=== PATIENT | female | born 1950 | race Caucasian/White ===

== ENCOUNTER 2017-04-18 16:24 | Inpatient (IN) | payer BC, MEDICARE ==
[~2017-04-18] VITALS: Ht 157.5 cm; Wt 59.0 kg
[2017-04-18] VITALS (14 sets, daily range): BP systolic 51–114; BP diastolic 34–56
[2017-04-18] MEDS ORDERED: ZOFRAN ODT8 MG ORAL (16:36)
[2017-04-18] MEDS ORDERED: TOPROL XL25 MG ORAL (16:36)
[2017-04-18] MEDS ORDERED: VENTOLIN HFA18 GM INH (16:36)
[2017-04-18] MEDS ORDERED: METOCLOPRA10 MG/10 M ORAL (16:36)
[2017-04-18] MEDS ORDERED: XANAX0.25 MG ORAL (16:36)
[2017-04-18] MEDS ORDERED: metroNIDAZOLE 500mg 100 ML IVPB ONE (17:30)
[2017-04-18] MEDS ORDERED: CefTAZidime 1 GM in D5W 55 ML IV SCH (17:30)
[2017-04-18] MEDS ORDERED: Clindamycin 600mg 50 ML IVPB ONE (17:30)
[2017-04-18] MEDS ORDERED: Cefepime HCl 1 GM in D5W 55 ML IVPB ONE (18:30)
[2017-04-18 18:44] LABS: REFLEX LACTIC ACID YES OR NO YES
[2017-04-18] MEDS ORDERED: Hydrocortisone 100mg Inj IV ONE (18:45)
[2017-04-18] MEDS ORDERED: Lidocaine HCl 2% Jelly 5ml Tube TOPIC ONE (20:56)
[2017-04-18] MEDS ORDERED: Lidocaine 1% MPF 10mg/ml 5ml ONE ×2 (20:57→21:11)
[2017-04-18] MEDS ORDERED: Cefepime 1gm vial ONE (21:57)
[2017-04-18] MEDS ORDERED: Levophed 4mg/4mL Inj IV ONE (22:30)
[2017-04-19] VITALS (49 sets, daily range): BP systolic 70–145; BP diastolic 27–93
[2017-04-19] MEDS ORDERED: Zolpidem 5mg tab ORAL PRN ×2 (00:45→10:45)
--- NOTE | 2017-04-19 00:46 | Emergency Room Report ---
History of Present Illness General Chief Complaint: Generalized Weakness Source: Patient Present Illness HPI Patient is a 66-year-old female who presented after increased shortness of breath and hypotension. The patient had been the seen at oncology clinic at [facility] and was given IV fluids. Patient prior history of lung cancer and had recent diagnosis approximately 2 months ago. The patient had been noted to have previous aright upper extremity blood clot. As she had previously been on chemotherapy last chemotherapy was approximately one week ago. She had the been noted to be febrile at the oncology clinic today. Laboratory studies were ordered and she was noted to be neutropenic. The patient had previous history of pericardial effusion and had a pericardial window performed. Patient had a previous thoracentesis for pleural effusion but is unclear if this had malignancy. Allergies: Coded Allergies: ACETAMINOPHEN (Verified Allergy, Intermediate, 04/18/17) LORAZEPAM (Verified Allergy, Intermediate, 04/18/17) OXYCODONE (Verified Allergy, Intermediate, 04/18/17) PENICILLINS (Verified Allergy, Intermediate, 04/18/17) Patient History Past Medical History: see triage record Reviewed Nursing Documentation: PMH: Agreed, PSxH: Agreed Nursing Documentation-PMH Hx Cardiac Problems: No Hx Hypertension: No Hx Pacemaker: No Review of Systems All Other Systems: negative except mentioned in HPI Physical Exam Vital Signs Date Time Temp Pulse Resp B/P (MAP) Pulse Ox O2 Delivery O2 Flow Rate FiO2 04/18/17 16:18 100.0 140 18 77/38 92 Nasal Cannula 4.0 Sp02 EP Interpretation: reviewed, normal General Appearance: normal inspection, well appearing, no apparent distress, alert Head: atraumatic ENT: normal ENT inspection, hearing grossly normal, normal voice Neck: normal inspection, full range of motion, supple, no bony tend Respiratory: normal inspection, lungs clear, normal breath sounds, no respiratory distress, no retraction, no wheezing Cardiovascular #1: regular rate, rhythm, no edema Gastrointestinal: normal inspection, normal bowel sounds, non tender, soft, no guarding, no hernia Genitourinary: no CVA tenderness Musculoskeletal: normal inspection, back normal, normal range of motion Neurologic: normal inspection, alert, responsive, speech normal Psychiatric: normal inspection, judgement/insight normal, mood/affect normal Skin: normal inspection, normal color, no rash Procedures Critical Care Time Critical Care Time Patient had a critical medical condition which untreated could potentially result in life or limb threatening injury. Total critical care time excluding procedures approximately 45 minutes. Medical Decision Making Diagnostic Impression: Primary Impression: Neutropenic fever Additional Impressions: Bilateral kidney stones Septic shock Gastroenteritis Thrombocytopenia ER Course Patient is a 66-year-old female presented for shortness of breath and fever. The patient was noted to be neutropenic. The differential diagnosis included was not limited to urinary tract infection, pulmonary embolism, myocardial infarction, gastroenteritis among others.Because of complexity of patient's case laboratory testing and imaging studies were ordered. The patient started on IV fluids. The patient was noted to have a previous blood draws which showed neutropenia as well as fever. The patient was given empiric antibiotics IV. Patient was noted to be hypotensive. She was given Levophed. Hydrocortisone was given. Patient was noted to have continued hypotension after IV fluids in the started on IV pressors after central line was placed. A CT of the chest read by radiologist showed left pleural effusion with some compressive atelectasis. The patient was also noted to have renal stone bilaterally with a [address] Sam was contacted for inpatient management as panel physician. Labs Test 04/18/17 20:15 Lactic Acid Level 1.30 mmol/L (0.66-2.22) EKG Diagnostic Results Rate: tachycardiac Rhythm: NSR ST Segments: no acute changes ASA given to the pt in ED: No Last Vital Signs Date Time Temp Pulse Resp B/P (MAP) Pulse Ox O2 Delivery O2 Flow Rate FiO2 04/18/17 22:50 87/40 04/18/17 19:00 99.7 134 24 100 Nasal Cannula 4.0 Status: unchanged Disposition: ADMITTED INPATIENT Condition: Critical Referrals: NON PHYSICIAN (PCP) Wu Medrano Apr 19, 2017 00:46
[2017-04-19] MEDS ORDERED: Vancomycin 1gm inj IVPB ONE (01:58)
[2017-04-19] MEDS ORDERED: Vancomycin 1gm/D5W 275ml IVPB ONE ×2 (02:00)
[2017-04-19] MEDS ORDERED: Ondansetron ODT 8mg tab ORAL PRN (03:45)
[2017-04-19] MEDS: Aztreonam Inj 1 GM in D5W 55 ML IVPB SCH (04:17)
[2017-04-19] MEDS ORDERED: Levophed 4mg/4mL Inj IV ONE (04:23)
[2017-04-19] MEDS ORDERED: ALPRAZolam 0.5mg tab ONE (04:42)
[2017-04-19] MEDS: ALPRAZolam 0.25mg tab ORAL PRN ×2 (04:49→13:18)
[2017-04-19 05:37] LABS: CALCIUM 7.4 mg/dL (8.6-10.2); CREATININE 1.1 mg/dL (0.5-0.9); GLOMERULAR FILTRATION RATE 49.6 mL/min (>60)
[2017-04-19 06:18] LABS: POTASSIUM 2.6 mEQ/L (3.4-4.9)
[2017-04-19 06:32] LABS: MEAN CORPUSCULAR HEMOGLOBIN 30.4 PG (27.0-31.0); MEAN CORPUSCULAR HGB CONC 32.2 G/DL (32.0-36.0); MEAN CORPUSCULAR VOLUME 94 FL (80-99); MEAN PLATELET VOLUME 13.5 FL (6.5-10.1); PLATELET COUNT 18 K/UL (150-450); RED BLOOD COUNT 3.55 M/UL (4.20-5.40); RED CELL DISTRIBUTION WIDTH 11.4 % (11.6-14.8)
[2017-04-19 07:34] LABS: WHITE BLOOD COUNT 0.2 K/UL (4.8-10.8)
[2017-04-19] MEDS: Metoprolol Succinate XL 25mg tab ORAL SCH (08:30)
[2017-04-19 09:35] LABS: BAND NEUTROPHILS % (MANUAL) 0 % (0-8); BASOPHILS % (MANUAL) 0 % (0-2); BURR CELLS 1+; EOSINOPHILS % (MANUAL) 0 % (0-3); LYMPHOCYTES % (MANUAL) 66 % (20-45); NEUTROPHILS % (MANUAL) 23 % (45-75); PLATELET ESTIMATE DECREASED; PLATELET MORPHOLOGY NORMAL; TOTAL CELLS COUNTED 100
[2017-04-19 09:36] LABS: SCHISTOCYTES 1+
--- NOTE | 2017-04-19 10:19 | Diagnostic Imaging Report ---
Indication: Chest pain Technique: Continuous helical transaxial imaging of the chest was obtained from the thoracic inlet to the upper abdomen during rapid intravenous contrast administration. Arterial phase of enhancement obtained. Coronal 2-D reformats were also obtained and maximum intensity projection images in multiple planes. Study obtained in a Siemens sensation [address] Total Dose length Product (DLP): [address] Dose Index Volume (CTDIvol): 12.6x5, 0.17, 21.91 mGy Comparison: None Findings: There is good opacification of the pulmonary artery and aorta on this exam. There is no evidence of filling defect in the pulmonary artery to suggest pulmonary bullous. Aorta is normal in caliber and shows no evidence of dissection. Some mural calcification noted within the aorta. Partial atelectasis of the left upper lobe secondary to encasement of the left upper lobe bronchus by what appears to be tumor involving the anterior mediastinum extending into the left hilar region. Left axillary adenopathy and abnormal nodes at the base of the neck, left side also demonstrated. Findings consistent with a malignancy. Left lower lobe atelectasis also demonstrated. There is some volume loss noted with shifting of the heart towards the left side. This is offset by the presence of a moderate left pleural effusion. There is considerable emphysema within the lungs with profound severe absence of pulmonary vascularity and architecture within the left upper lobe. More typical appearing emphysematous changes in the right lung with areas of hyperlucency. The visualized upper abdomen shows a large right renal calculus partially imaged within the renal pelvis measuring at least 2 cm. Gallbladder sludge versus tiny stones also noted. There is a moderate right convex scoliosis of the thoracic spine. Impression: No evidence of pulmonary embolus. Ill-defined mass in the anterior mediastinal region extending into the left hilum. Encasement of the left upper lobe bronchus with postobstructive atelectasis noted. Left pleural effusion, appears nonhemodynamically in nature and could be inflammatory or secondary to malignancy. Emphysema within the lungs. Partially imaged 2 cm right renal pelvis calculus. Scoliosis The CT scanner at [facility] is accredited by the [employer] and the scans are performed using dose optimization techniques as appropriate to a performed exam including Automatic Exposure control.
--- NOTE | 2017-04-19 11:15 | Diagnostic Imaging Report ---
Indication: Line placement Comparison: Earlier the same day A single view chest radiograph was obtained. Findings: Right jugular line has been placed and is in good position projected over the SVC. There is no pneumothorax. No change otherwise. Impression: Right jugular line in good position. No pneumothorax
[2017-04-19 11:53] LABS: OTHERS PATHOLOGIST COMMENT
[2017-04-19] MEDS ORDERED: Albuterol 90mcg Inhaler 8gm INH SCH (12:00)
--- NOTE | 2017-04-19 13:17 | Diagnostic Imaging Report ---
Indication: Dyspnea Comparison: None A single view chest radiograph was obtained. Findings: There is a moderate scoliosis convex to the right. There is a left pleural effusion present as well as left basal atelectasis. Bones are osteopenic. Impression: Left pleural effusion and atelectasis. Scoliosis
--- NOTE | 2017-04-19 13:48 | History & Physical ---
History and Physical History & Physicial 66-year-old female who presents through the ER with increased shortness of breath and hypotension as well as tachycardia. The patient had been treated by oncology at [facility] and recently underwent chemo. Patient with history of advanced cancer and had recent diagnosis approximately 2 months ago. The patient had been noted to have previous right upper extremity blood clot. As she had previously been on chemotherapy last chemotherapy was approximately one week ago. She had the been noted to be febrile and Laboratory studies were ordered and she was noted to be neutropenic. The patient had previous history of pericardial effusion and had a pericardial window performed. Patient had a previous thoracentesis for pleural effusion. Patient has been losing weight, has been more confused, and has had a poor appetite. Allergies: ACETAMINOPHEN (Verified Allergy, Intermediate, 04/18/17) LORAZEPAM (Verified Allergy, Intermediate, 04/18/17) OXYCODONE (Verified Allergy, Intermediate, 04/18/17) PENICILLINS (Verified Allergy, Intermediate, 04/18/17) Past Medical History: as above Reviewed of systems: as above; failure to thrive Physical Exam Vital Signs Date Time Temp Pulse Resp B/P (MAP) Pulse Ox O2 Delivery O2 Flow Rate FiO2 04/18/17 16:18 100.0 142 18 120/82 94 Nasal Cannula 4.0 Sp02 EP Interpretation: reviewed, normal General Appearance: ill appearing and confused Head: atraumatic ENT: normal ENT inspection, Neck: normal inspection, full range of motion, supple, Respiratory: normal inspection, lungs clear, normal breath sounds, reduced left Cardiovascular #1: regular rhythm, no edema; tachy without MRG Gastrointestinal: normal inspection, normal bowel sounds, non tender, Genitourinary: no CVA tenderness Musculoskeletal: no CCE Neurologic: confused and weak Labs Test 04/18/17 16:57 04/18/17 20:15 04/19/17 04:00 Lactic Acid Level 2.10 mmol/L (0.66-2.22) 1.30 mmol/L (0.66-2.22) White Blood Count 0.2 K/UL (4.8-10.8) Red Blood Count 3.55 M/UL (4.20-5.40) Hemoglobin 10.8 G/DL (12.0-16.0) Hematocrit 33.6 % (37.0-47.0) Mean Corpuscular Volume 94 FL (80-99) Mean Corpuscular Hemoglobin 30.4 PG (27.0-31.0) Mean Corpuscular Hemoglobin Concent 32.2 G/DL (32.0-36.0) Red Cell Distribution Width 11.4 % (11.6-14.8) Platelet Count 18 K/UL (150-450) Mean Platelet Volume 13.5 FL (6.5-10.1) Neutrophils (%) (Auto) % (45.0-75.0) Lymphocytes (%) (Auto) % (20.0-45.0) Monocytes (%) (Auto) % (1.0-10.0) Eosinophils (%) (Auto) % (0.0-3.0) Basophils (%) (Auto) % (0.0-2.0) Differential Total Cells Counted 100 Neutrophils % (Manual) 23 % (45-75) Lymphocytes % (Manual) 66 % (20-45) Monocytes % (Manual) 11 % (1-10) Eosinophils % (Manual) 0 % (0-3) Basophils % (Manual) 0 % (0-2) Band Neutrophils 0 % (0-8) Other Cell Type Pathologist comment Platelet Estimate Decreased Platelet Morphology Normal [place] Cells 1+ Schistocytes 1+ Sodium Level 133 mEQ/L (135-145) Potassium Level 2.6 mEQ/L (3.4-4.9) Chloride Level 97 mEQ/L (98-107) Carbon Dioxide Level 23 mEQ/L (20-30) Anion Gap 13 (5-15) Blood Urea Nitrogen 26 mg/dL (7-23) Creatinine 1.1 mg/dL (0.5-0.9) Estimat Glomerular Filtration Rate 49.6 mL/min (>60) Glucose Level 147 mg/dL (74-106) Calcium Level 7.4 mg/dL (8.6-10.2) IMPRESSION hypotension shock sepsis neutropenic fevers anemia thrombocytopenia tachycardia lactic acidemia advanced cancer pleural effusion pericardial effusion PLAN ID and cards evaluation IV antibiotics taper off levophed monitor heart rate neuopogen neutropenic precautions diet as able thoracentesis- platelets very low family wants transfer to [facility] [place] Apr 19, 2017 13:48
--- NOTE | 2017-04-19 19:31 | Consultation ---
DATE OF CONSULTATION: 04/19/2017 INFECTIOUS DISEASES CONSULTATION CONSULTING PHYSICIAN: Tahir George M.D. This consult is for coverage of Dr. Jane. PRIMARY ATTENDING PHYSICIAN: Neftali Sam M.D. REASON FOR CONSULTATION: Neutropenic fever. History Of Present Illness: This is a 66-year-old [place]ian female, admitted last night because of fever, hypotension, and shortness of breath. The patient has history of recently diagnosed small-cell lung cancer. She received three times chemotherapy, that last one was on 04/12/2017. She did go to [facility] yesterday for second opinion and then had PET scan there. She had low-grade fever. She was supposed to be admitted to [facility], but because of the ER did not accept new patient, the patient was transferred to [place]. At the time of admission, she had temperature of 100. Past Medical History: Lung cancer and has history of pericardial effusion. Medications: She is getting Granix, albuterol, potassium chloride, Protonix, Toprol, Azactam, alprazolam, metoclopramide, Zofran, norepinephrine, and vancomycin. Allergies: Tylenol, lorazepam, oxycodone, and penicillin although she is not sure about the penicillin. Social History: She has history of smoking. and has one child. Review Of Systems: Decreasing appetite and some diarrhea. No coughing. No problem passing urine. PHYSICAL EXAMINATION: Vital Signs: Temperature 97.6, T-max 100, pulse 157, and blood pressure 142/66. Head And Neck: Right internal jugular central line that was placed in the hospital. She has dry mouth. No significant oral lesion. HEART: Tachycardic. LUNGS: There is decreased sound in the left lung. ABDOMEN: Soft and nontender. EXTREMITIES: She has no edema. Laboratory Data: WBC 0.2, hemoglobin 10.8, hematocrit 33.6, and platelet count 18,000. Sodium 132, potassium 2.6, chloride 97, bicarbonate 23, BUN 26, creatinine 1.1, and glucose 147. Chest x-ray showed mediastinal mass, abnormality in the left lung with effusion, and decreased volume of the lung. Impression: Sepsis with septic shock. The patient currently is on low dose of Levophed, seems to have neutropenic fever, has thrombocytopenia, anemia, and has hypokalemia. Recommendation: We will continue with Azactam and vancomycin. We will send for UA and urine culture. We will follow up CT scan of the chest. We will follow up the CBC. At the end of my exam, I thank Dr. Sam for involving me in the care of this patient. Tahir George M.D. DR: YUDITH JOB#: [id number] CC: SKYLAR
[2017-04-19] MEDS: Albuterol 90mcg Inhaler 8gm INH SCH (19:35)
[2017-04-19] MEDS ORDERED: TBO-Filgrastim 300 mcg/0.5ml SQ SCH (21:00)
[2017-04-19] MEDS ORDERED: Dyna-Hex 2% Top Sol 8oz TOPIC SCH (21:00)
[2017-04-19] MEDS ORDERED: Vancomycin 1gm in D5W 275ml IVPB SCH (23:00)
[2017-04-20] VITALS (15 sets, daily range): BP systolic 87–143; BP diastolic 40–99
[2017-04-20] MEDS: Albuterol 90mcg Inhaler 8gm INH SCH ×4 (01:21→19:36)
[2017-04-20] MEDS: Aztreonam Inj 1 GM in D5W 55 ML IVPB SCH (04:14)
[2017-04-20 05:30] LABS: MEAN CORPUSCULAR HEMOGLOBIN 31.9 PG (27.0-31.0); MEAN CORPUSCULAR HGB CONC 33.5 G/DL (32.0-36.0); MEAN CORPUSCULAR VOLUME 95 FL (80-99); MEAN PLATELET VOLUME 10.4 FL (6.5-10.1); RED BLOOD COUNT 3.34 M/UL (4.20-5.40); RED CELL DISTRIBUTION WIDTH 11.6 % (11.6-14.8)
[2017-04-20 05:37] LABS: WHITE BLOOD COUNT 0.5 K/UL (4.8-10.8)
[2017-04-20 05:38] LABS: PLATELET COUNT 8 K/UL (150-450)
[2017-04-20 05:47] LABS: ANION GAP 10 (5-15); CALCIUM 8.3 mg/dL (8.6-10.2); CARBON DIOXIDE 21 mEQ/L (20-30); CHLORIDE 106 mEQ/L (98-107); CREATININE 0.8 mg/dL (0.5-0.9); GLOMERULAR FILTRATION RATE > 60 mL/min (>60); HEMOLYSIS 2; POTASSIUM 3.3 mEQ/L (3.4-4.9); SODIUM 137 mEQ/L (135-145)
--- NOTE | 2017-04-20 06:02 | Consultation ---
DATE OF CONSULTATION: 04/19/2017 CARDIOLOGY CONSULTATION REQUESTING PHYSICIAN: Neftali Sam M.D. REASON FOR CONSULTATION: Hypotension and tachycardia. History Of Present Illness: This 66-year-old female presented to the emergency room with shortness of breath. She was noted to have a rapid heart rate and low blood pressure. She recently underwent chemotherapy for advanced carcinoma. She was admitted to the intensive care unit and I have been asked to assist with further care. Past Medical History: Lung cancer, history of pericardial effusion status post chemotherapy. ALLERGIES: Include penicillin, lorazepam, as well as acetaminophen. MEDICATIONS: Reviewed and reconciled. FAMILY HISTORY: Noncontributory. SOCIAL HISTORY: No current smoking or alcohol use. Review Of Systems: A 10-point review of systems performed pertinent data outlined above. PHYSICAL EXAMINATION: Vital Signs: Blood pressure 77/38, heart rate 140, respiratory rate 18, and temperature 100 degrees. GENERAL: Ill-appearing. LUNGS: Few rhonchi. Heart: Regular rhythm. Rapid rate. Normal S1 and S2 with no murmur. ABDOMEN: Soft. EXTREMITIES: Without edema. There is no Kussmaul sign. Laboratory Data: White count 0.2, hemoglobin 10.8, and platelet count 18,000. Sodium 133, potassium 3.6, bicarbonate 23, BUN 26, and creatinine 1.1. IMPRESSION: 1. Septic shock. 2. Hypovolemia. 3. Pancytopenia. 4. Lung cancer with recent chemotherapy. 5. Neutropenic sepsis. 6. History of pericardial effusion. 7. Secondary sinus tachycardia. 8. Hypokalemia. PLAN: 1. Volume resuscitation. 2. Panculture. 3. Broad-spectrum antibiotics. 4. Attempt to taper off pressors. 5. Echocardiogram to evaluate for pericardial disease. 6. Intensive care unit monitoring. 7. Condition is critical with guarded prognosis. 8. Volume resuscitation and potassium replacement have been given as well. Erik Figueroa M.D. DR: CANELO JOB#: [id number] CC:
[2017-04-20] MEDS ORDERED: NS 275ml ONE (09:05)
[2017-04-20] MEDS: Metoprolol Succinate XL 25mg tab ORAL SCH (09:05)
[2017-04-20] MEDS ORDERED: D5W 275ml ONE (09:05)
[2017-04-20] MEDS ORDERED: Tubing IV Secondary IV ONE (09:05)
[2017-04-20 09:43] LABS: BAND NEUTROPHILS % (MANUAL) 1 % (0-8); BASOPHILS % (MANUAL) 1 % (0-2); LYMPHOCYTES % (MANUAL) 27 % (20-45); NEUTROPHILS % (MANUAL) 55 % (45-75); TOTAL CELLS COUNTED 100
[2017-04-20 09:44] LABS: TOXIC GRANULATION 1+
[2017-04-20 09:45] LABS: EOSINOPHILS % (MANUAL) 0 % (0-3); PLATELET ESTIMATE DECREASED; PLATELET MORPHOLOGY NORMAL
[2017-04-20] MEDS ORDERED: ALPRAZolam 0.25mg tab ORAL PRN (11:30)
[2017-04-20] MEDS ORDERED: Ondansetron ODT 8mg tab ORAL PRN (12:15)
--- NOTE | 2017-04-20 12:15 | Infectious Diseases Prog Note ---
Assessment/Plan Assessment/Plan antibiotics : vancomycin iv, aztreonam A 1. gram variable kathia sepsis 2. lung cancer 3. pancytopenia 4. pleural effusion P 1. continue iv vancomycin 2. d/c aztreonam 3. start cefepime 4. will follow up cultures Subjective ROS Limited/Unobtainable: Yes Allergies: Coded Allergies: ACETAMINOPHEN (Verified Allergy, Intermediate, 04/18/17) LORAZEPAM (Verified Allergy, Intermediate, 04/18/17) OXYCODONE (Verified Allergy, Intermediate, 04/18/17) PENICILLINS (Verified Allergy, Intermediate, 04/18/17) Objective Vital Signs Last 24 Hour Vital Signs Date Time Temp Pulse Resp B/P (MAP) Pulse Ox O2 Delivery O2 Flow Rate FiO2 04/20/17 12:00 115 04/20/17 10:00 112 20 92/49 100 Nasal Cannula 2.0 04/20/17 09:05 110 110/49 04/20/17 09:00 115 20 104/60 100 Nasal Cannula 2.0 04/20/17 08:00 111 04/20/17 08:00 110 22 89/40 100 Nasal Cannula 2.0 04/20/17 07:35 98 Nasal Cannula 2.0 28 04/20/17 07:35 Nasal Cannula 2.0 28 04/20/17 07:35 Room Air 04/20/17 07:35 Room Air 04/20/17 06:01 114 25 98/45 100 Nasal Cannula 2.0 04/20/17 05:00 118 25 88/48 95 Nasal Cannula 2.0 04/20/17 04:00 97.8 118 25 93/53 95 Nasal Cannula 2.0 04/20/17 04:00 110 04/20/17 03:00 103 25 94/46 95 Nasal Cannula 2.0 04/20/17 02:00 118 25 93/53 95 Nasal Cannula 2.0 04/20/17 01:24 111 20 100 Nasal Cannula 2.0 28 04/20/17 01:21 112 20 100 Nasal Cannula 2.0 28 04/20/17 01:21 Nasal Cannula 2.0 28 04/20/17 01:21 100 Nasal Cannula 2.0 28 04/20/17 01:00 105 25 100/46 95 Nasal Cannula 2.0 04/20/17 00:45 100/45 04/20/17 00:00 97.6 122 25 94/53 95 Nasal Cannula 2.0 04/20/17 00:00 112 04/19/17 23:00 122 25 96/45 95 Nasal Cannula 2.0 04/19/17 22:00 122 25 95/35 95 Nasal Cannula 2.0 04/19/17 21:00 122 25 96/53 95 Nasal Cannula 2.0 04/19/17 20:00 123 04/19/17 20:00 97.5 123 25 96/27 96 Nasal Cannula 2.0 04/19/17 19:35 Room Air 04/19/17 19:35 Room Air 04/19/17 19:00 133 20 101/76 95 Nasal Cannula 2.0 04/19/17 18:00 132 20 99/55 95 Nasal Cannula 2.0 04/19/17 17:00 124 20 97/59 95 Nasal Cannula 2.0 04/19/17 16:00 97.9 132 20 96/80 95 Nasal Cannula 2.0 04/19/17 16:00 132 04/19/17 15:00 133 20 102/79 95 Nasal Cannula 2.0 04/19/17 14:00 132 20 104/42 95 Nasal Cannula 2.0 04/19/17 13:00 128 20 106/60 95 Nasal Cannula 2.0 04/19/17 12:17 119 25 95 Nasal Cannula 2.0 Height (Feet): 5 Height (Inches): 2.00 Weight (Pounds): 126 Respiratory/Chest: lungs clear Cardiovascular: normal rate, regular rhythm, no gallop/murmur Abdomen: soft, non tender Extremities: no edema, other - right IJ catheter Microbiology Date/Time Source Procedure Growth Status 04/18/17 16:57 Blood Blood Culture - Preliminary Resulted 04/18/17 16:42 Blood Blood Culture - Preliminary NO GROWTH AFTER 24 HOURS Resulted Laboratory Tests Test 04/20/17 04:00 White Blood Count 0.5 K/UL (4.8-10.8) #*L Red Blood Count 3.34 M/UL (4.20-5.40) L Hemoglobin 10.6 G/DL (12.0-16.0) L Hematocrit 31.7 % (37.0-47.0) L Mean Corpuscular Volume 95 FL (80-99) Mean Corpuscular Hemoglobin 31.9 PG (27.0-31.0) H Mean Corpuscular Hemoglobin Concent 33.5 G/DL (32.0-36.0) Red Cell Distribution Width 11.6 % (11.6-14.8) Platelet Count 8 K/UL (150-450) #*L Mean Platelet Volume 10.4 FL (6.5-10.1) H Neutrophils (%) (Auto) % (45.0-75.0) Lymphocytes (%) (Auto) % (20.0-45.0) Monocytes (%) (Auto) % (1.0-10.0) Eosinophils (%) (Auto) % (0.0-3.0) Basophils (%) (Auto) % (0.0-2.0) Differential Total Cells Counted 100 Neutrophils % (Manual) 55 % (45-75) Lymphocytes % (Manual) 27 % (20-45) Monocytes % (Manual) 16 % (1-10) H Eosinophils % (Manual) 0 % (0-3) Basophils % (Manual) 1 % (0-2) Band Neutrophils 1 % (0-8) Toxic Granulation 1+ Platelet Estimate Decreased L Platelet Morphology Normal Red Blood Cell Morphology Normal Sodium Level 137 mEQ/L (135-145) Potassium Level 3.3 mEQ/L (3.4-4.9) L Chloride Level 106 mEQ/L (98-107) Carbon Dioxide Level 21 mEQ/L (20-30) Anion Gap 10 (5-15) Blood Urea Nitrogen 24 mg/dL (7-23) H Creatinine 0.8 mg/dL (0.5-0.9) Estimat Glomerular Filtration Rate > 60 mL/min (>60) Glucose Level 154 mg/dL (74-106) H Calcium Level 8.3 mg/dL (8.6-10.2) L Magnesium Level 1.3 mg/dL (1.7-2.5) SCOTT RAMOS Apr 20, 2017 12:15
--- NOTE | 2017-04-20 13:59 | Critical Care Progress Note ---
Assessment/Plan Assessment/Plan IMPRESSION hypotension shock sepsis neutropenic fevers anemia thrombocytopenia tachycardia lactic acidemia advanced cancer pleural effusion pericardial effusion PLAN ID and cards evaluation IV antibiotics off levophed monitor heart rate- improved neupogen neutropenic precautions diet as able thoracentesis- platelets very low platelet transfusion needed family wants transfer to [facility] Critical Care - Subjective Interval Events: care noted vital signs improved off pressors d/w Dr. Stoddard Condition: improving I&O: Intake and Output 04/20/17 04/21/17 19:00 07:00 Output Total 0 ml Balance 0 ml Output Urine Total 0 ml Critical Care - Objective Last 24 Hour Vital Signs Date Time Temp Pulse Resp B/P (MAP) Pulse Ox O2 Delivery O2 Flow Rate FiO2 04/20/17 13:25 110 20 99 Nasal Cannula 2.0 28 04/20/17 13:25 112 20 100 Nasal Cannula 2.0 28 04/20/17 12:00 97.0 64 20 106/69 100 Nasal Cannula 3.0 04/20/17 12:00 115 04/20/17 10:00 112 20 92/49 100 Nasal Cannula 2.0 04/20/17 09:05 110 110/49 04/20/17 09:00 115 20 104/60 100 Nasal Cannula 2.0 04/20/17 08:00 111 04/20/17 08:00 110 22 89/40 100 Nasal Cannula 2.0 04/20/17 07:35 98 Nasal Cannula 2.0 04/20/17 07:35 Nasal Cannula 2.0 28 04/20/17 07:35 Room Air 04/20/17 07:35 Room Air 04/20/17 06:01 114 25 98/45 100 Nasal Cannula 2.0 04/20/17 05:00 118 25 88/48 95 Nasal Cannula 2.0 04/20/17 04:00 97.8 118 25 93/53 95 Nasal Cannula 2.0 04/20/17 04:00 110 04/20/17 03:00 103 25 94/46 95 Nasal Cannula 2.0 04/20/17 02:00 118 25 93/53 95 Nasal Cannula 2.0 04/20/17 01:24 111 20 100 Nasal Cannula 2.0 28 04/20/17 01:21 112 20 100 Nasal Cannula 2.0 28 04/20/17 01:21 Nasal Cannula 2.0 28 04/20/17 01:21 100 Nasal Cannula 2.0 28 04/20/17 01:00 105 25 100/46 95 Nasal Cannula 2.0 04/20/17 00:45 100/45 04/20/17 00:00 97.6 122 25 94/53 95 Nasal Cannula 2.0 04/20/17 00:00 112 04/19/17 23:00 122 25 96/45 95 Nasal Cannula 2.0 04/19/17 22:00 122 25 95/35 95 Nasal Cannula 2.0 04/19/17 21:00 122 25 96/53 95 Nasal Cannula 2.0 04/19/17 20:00 123 04/19/17 20:00 97.5 123 25 96/27 96 Nasal Cannula 2.0 04/19/17 19:35 Room Air 04/19/17 19:35 Room Air 04/19/17 19:00 133 20 101/76 95 Nasal Cannula 2.0 04/19/17 18:00 132 20 99/55 95 Nasal Cannula 2.0 04/19/17 17:00 124 20 97/59 95 Nasal Cannula 2.0 04/19/17 16:00 97.9 132 20 96/80 95 Nasal Cannula 2.0 04/19/17 16:00 132 04/19/17 15:00 133 20 102/79 95 Nasal Cannula 2.0 04/19/17 14:00 132 20 104/42 95 Nasal Cannula 2.0 Labs: Laboratory Tests Test 04/20/17 04:00 White Blood Count 0.5 K/UL (4.8-10.8) #*L Red Blood Count 3.34 M/UL (4.20-5.40) L Hemoglobin 10.6 G/DL (12.0-16.0) L Hematocrit 31.7 % (37.0-47.0) L Mean Corpuscular Volume 95 FL (80-99) Mean Corpuscular Hemoglobin 31.9 PG (27.0-31.0) H Mean Corpuscular Hemoglobin Concent 33.5 G/DL (32.0-36.0) Red Cell Distribution Width 11.6 % (11.6-14.8) Platelet Count 8 K/UL (150-450) #*L Mean Platelet Volume 10.4 FL (6.5-10.1) H Neutrophils (%) (Auto) % (45.0-75.0) Lymphocytes (%) (Auto) % (20.0-45.0) Monocytes (%) (Auto) % (1.0-10.0) Eosinophils (%) (Auto) % (0.0-3.0) Basophils (%) (Auto) % (0.0-2.0) Differential Total Cells Counted 100 Neutrophils % (Manual) 55 % (45-75) Lymphocytes % (Manual) 27 % (20-45) Monocytes % (Manual) 16 % (1-10) H Eosinophils % (Manual) 0 % (0-3) Basophils % (Manual) 1 % (0-2) Band Neutrophils 1 % (0-8) Toxic Granulation 1+ Platelet Estimate Decreased L Platelet Morphology Normal Red Blood Cell Morphology Normal Sodium Level 137 mEQ/L (135-145) Potassium Level 3.3 mEQ/L (3.4-4.9) L Chloride Level 106 mEQ/L (98-107) Carbon Dioxide Level 21 mEQ/L (20-30) Anion Gap 10 (5-15) Blood Urea Nitrogen 24 mg/dL (7-23) H Creatinine 0.8 mg/dL (0.5-0.9) Estimat Glomerular Filtration Rate > 60 mL/min (>60) Glucose Level 154 mg/dL (74-106) H Calcium Level 8.3 mg/dL (8.6-10.2) L Magnesium Level 1.3 mg/dL (1.7-2.5) L Micro: Microbiology Date/Time Source Procedure Growth Status 04/18/17 16:57 Blood Blood Culture - Preliminary Resulted 04/18/17 16:42 Blood Blood Culture - Preliminary NO GROWTH AFTER 24 HOURS Resulted LUIGI HOANG Apr 20, 2017 13:59
[2017-04-20] MEDS: Cefepime HCl 2 GM in D5W 110 ML IVPB SCH (15:02)
[2017-04-20] MEDS ORDERED: TBO-Filgrastim 300 mcg/0.5ml SQ SCH (21:00)
[2017-04-20] MEDS ORDERED: Dyna-Hex 2% Top Sol 8oz TOPIC SCH (21:00)
[2017-04-20] MEDS ORDERED: Vancomycin 1 GM in D5W 275 ML IVPB SCH (23:00)
[2017-04-21] VITALS: BP 110/60
[2017-04-21] MEDS: Albuterol 90mcg Inhaler 8gm INH SCH ×2 (01:00→07:00)
[2017-04-21 04:00] VITALS: BP 124/74
[2017-04-21 04:00] LABS: ANION GAP 11 (5-15); CALCIUM 9.2 mg/dL (8.6-10.2); CARBON DIOXIDE 19 mEQ/L (20-30); CHLORIDE 110 mEQ/L (98-107); CREATININE 0.9 mg/dL (0.5-0.9); GLOMERULAR FILTRATION RATE > 60 mL/min (>60); HEMOLYSIS 26; POTASSIUM 3.5 mEQ/L (3.4-4.9); SODIUM 140 mEQ/L (135-145)
[2017-04-21] MEDS ORDERED: Aztreonam Inj 1 GM in D5W 55 ML IVPB SCH (04:00)
--- NOTE | 2017-04-21 05:45 | Progress Note ---
CARDIOLOGY PROGRESS NOTE Subjective: The patient is out of the intensive care unit. Blood pressure parameters have improved, although remained tenuous. Monitor reveals sinus tachycardia. OBJECTIVE: Vital Signs: Blood pressure 92/49, heart rate 112, respiratory rate 20. The patient is now afebrile. HEENT: Dry mucous membranes. No thrush. LUNGS: Clear. CARDIAC: Regular rhythm. Rapid rate. Normal S1, S2. ABDOMEN: Soft without edema. Laboratory Data: White count 0.5, platelet count 8000, hemoglobin 10.6. Magnesium 1.3. Potassium 3.3, BUN 24, creatinine 0.8. IMPRESSION: 1. Neutropenic sepsis. 2. Metastatic lung cancer. 3. Hypokalemia. 4. Hypomagnesemia. 5. Severe thrombocytopenia. 6. Recovering shock due to sepsis. PLAN: 1. Neupogen. 2. Platelet transfusion. 3. Antibiotics. 4. Hydration. 5. Potassium replacement. 6. Recheck magnesium. 7. Avoid resumption of pressors. Erik Figueroa M.D. DR: DEBRA JOB#: [id number] CC:
[2017-04-21 07:50] VITALS: BP 95/54
[2017-04-21 08:48] LABS: MEAN CORPUSCULAR HEMOGLOBIN 31.7 PG (27.0-31.0); MEAN CORPUSCULAR HGB CONC 32.6 G/DL (32.0-36.0); MEAN CORPUSCULAR VOLUME 97 FL (80-99); MEAN PLATELET VOLUME 5.8 FL (6.5-10.1); PLATELET COUNT 55 K/UL (150-450); RED BLOOD COUNT 3.27 M/UL (4.20-5.40)
[2017-04-21] MEDS: Cefepime HCl 2 GM in D5W 110 ML IVPB SCH (08:54)
[2017-04-21] MEDS ORDERED: Metoprolol Succinate XL 25mg tab ORAL SCH (09:00)
--- NOTE | 2017-04-21 09:30 | Critical Care Progress Note ---
Assessment/Plan Assessment/Plan IMPRESSION hypotension shock sepsis neutropenic fevers anemia thrombocytopenia tachycardia lactic acidemia advanced cancer pleural effusion pericardial effusion PLAN ID and cards evaluation IV antibiotics noted off levophed monitor heart rate- stable neupogen with improvement neutropenic precautions diet as able thoracentesis- repeat cxr platelet transfusion with improvement boost with meals family wants transfer to [facility] Critical Care - Subjective Interval Events: still confused poor po d/w ROS Limited/Unobtainable: Yes EKG Rhythm: Sinus Rhythm Critical Care - Objective Last 24 Hour Vital Signs Date Time Temp Pulse Resp B/P (MAP) Pulse Ox O2 Delivery O2 Flow Rate FiO2 04/21/17 08:55 100 95/54 04/21/17 08:25 Room Air 04/21/17 08:24 Room Air 04/21/17 08:24 Room Air 04/21/17 08:21 95 Room Air 04/21/17 07:50 97.4 100 20 95/54 93 Room Air 04/21/17 04:00 113 04/21/17 04:00 97.6 100 20 124/74 95 Nasal Cannula 3.0 04/21/17 01:35 Nasal Cannula 2.0 04/21/17 01:35 Nasal Cannula 2.0 04/21/17 00:00 97.6 91 20 110/60 94 Nasal Cannula 3.0 04/21/17 00:00 111 04/20/17 20:00 106 04/20/17 20:00 98.0 91 20 96/65 94 Nasal Cannula 3.0 04/20/17 19:37 100 18 99 Nasal Cannula 2.0 28 04/20/17 19:37 99 Nasal Cannula 2.0 04/20/17 19:37 101 18 99 Nasal Cannula 2.0 28 04/20/17 19:37 Nasal Cannula 2.0 28 04/20/17 16:00 97.9 106 18 143/99 92 Nasal Cannula 3.0 04/20/17 16:00 108 04/20/17 13:25 110 20 99 Nasal Cannula 2.0 28 04/20/17 13:25 112 20 100 Nasal Cannula 2.0 28 04/20/17 12:00 97.0 64 20 106/69 100 Nasal Cannula 3.0 04/20/17 12:00 115 04/20/17 11:00 112 18 89/49 98 Nasal Cannula 2.0 04/20/17 10:00 112 20 92/49 100 Nasal Cannula 2.0 Labs: Laboratory Tests Test 04/21/17 03:10 04/21/17 08:30 Sodium Level 140 mEQ/L (135-145) Potassium Level 3.5 mEQ/L (3.4-4.9) Chloride Level 110 mEQ/L (98-107) H Carbon Dioxide Level 19 mEQ/L (20-30) L Anion Gap 11 (5-15) Blood Urea Nitrogen 25 mg/dL (7-23) H Creatinine 0.9 mg/dL (0.5-0.9) Estimat Glomerular Filtration Rate > 60 mL/min (>60) Glucose Level 94 mg/dL (74-106) Calcium Level 9.2 mg/dL (8.6-10.2) Magnesium Level 1.5 mg/dL (1.7-2.5) L White Blood Count 2.0 K/UL (4.8-10.8) #*L Red Blood Count 3.27 M/UL (4.20-5.40) L Hemoglobin 10.4 G/DL (12.0-16.0) L Hematocrit 31.8 % (37.0-47.0) L Mean Corpuscular Volume 97 FL (80-99) Mean Corpuscular Hemoglobin 31.7 PG (27.0-31.0) H Mean Corpuscular Hemoglobin Concent 32.6 G/DL (32.0-36.0) Red Cell Distribution Width 12.0 % (11.6-14.8) Platelet Count 55 K/UL (150-450) #L Mean Platelet Volume 5.8 FL (6.5-10.1) L Neutrophils (%) (Auto) % (45.0-75.0) Lymphocytes (%) (Auto) % (20.0-45.0) Monocytes (%) (Auto) % (1.0-10.0) Eosinophils (%) (Auto) % (0.0-3.0) Basophils (%) (Auto) % (0.0-2.0) Neutrophils % (Manual) Pending Lymphocytes % (Manual) Pending Platelet Estimate Pending Platelet Morphology Pending Micro: Microbiology Date/Time Source Procedure Growth Status 04/18/17 16:57 Blood Blood Culture - Preliminary Resulted 04/18/17 16:42 Blood Blood Culture - Preliminary NO GROWTH AFTER 24 HOURS Resulted 04/18/17 23:30 Rectum VRE Culture - Final NO VANCOMYCIN RESISTANT ENTEROCOCCUS ... Complete LUIGI HOANG Apr 21, 2017 09:30
[2017-04-21 09:58] LABS: BAND NEUTROPHILS % (MANUAL) 0 % (0-8); BASOPHILS % (MANUAL) 1 % (0-2); BURR CELLS 1+; EOSINOPHILS % (MANUAL) 0 % (0-3); LYMPHOCYTES % (MANUAL) 17 % (20-45); NEUTROPHILS % (MANUAL) 71 % (45-75); PLATELET ESTIMATE DECREASED; PLATELET MORPHOLOGY NORMAL; SCHISTOCYTES 1+; TOTAL CELLS COUNTED 100
[2017-04-21] MEDS ORDERED: Zolpidem 5mg tab ORAL PRN (10:45)
[2017-04-21] MEDS ORDERED: Norco 5mg/325mg tab ORAL PRN ×2 (11:00)
[2017-04-21 13:11] VITALS: BP 126/45
[2017-04-21] MEDS ORDERED: NS 275ml ONE ×2 (14:25)
[2017-04-21] MEDS ORDERED: Tubing IV Secondary IV ONE (14:25)
[2017-04-21] MEDS ORDERED: Tubing IV Blood Pump IV ONE (14:25)
[2017-04-21] MEDS ORDERED: TBO-Filgrastim 300 mcg/0.5ml SQ SCH (21:00)
--- NOTE | 2017-04-22 06:15 | Progress Note ---
DATE: 04/21/2017 CARDIOLOGY PROGRESS NOTE Subjective: The patient's blood pressure is slowly improving now ranging from 95/54 to 124/74. She remains tachycardic with heart rate in the 100s, respiratory rate 20, and afebrile. Oral intake is poor. No nausea, vomiting, or abdominal pain. Monitored sinus tachycardia. OBJECTIVE: LUNGS: Clear. CARDIAC: Regular rhythm. Rapid rate. Normal S1 and S2. ABDOMEN: Soft. No focal tenderness. EXTREMITIES: No edema. IMPRESSION: 1. Neutropenic sepsis. 2. Shock. 3. Metastatic carcinoma. 4. Thrombocytopenia status post platelet transfusion. 5. Pleural effusion. 6. Critical and guarded, but improving. 7. Pericardial effusion of no hemodynamic significance at this time. PLAN: 1. Continue antimicrobials, IV fluids, Neupogen, and transfusions of blood products based on clinical parameters. 2. Nutritional support as tolerated. 3. Transfer plan to Tertiary care facility. Erik Figueroa M.D. DR: CANEOL JOB#: [id number] CC:
--- NOTE | 2017-04-22 16:00 | Cardiology Report ---
APPROVED REPORT EKG Measurement Heart [id number] Sinus tachycardia Low voltage QRS Cannot rule out Anterior infarct, age undetermined T wave abnormality, consider inferolateral ischemia Abnormal ECG
--- NOTE | 2017-04-22 16:05 | Cardiology Report ---
APPROVED REPORT EKG Measurement Heart [id number] Sinus tachycardia Possible Anterior infarct, age undetermined T wave abnormality, consider inferolateral ischemia Abnormal ECG
--- NOTE | 2017-04-22 23:14 | Diagnostic Imaging Report ---
APPROVED REPORT CPT Code: 38376 Present Symptoms Shortness of breath BILATERAL: Imaging reveals a patent deep venous system bilaterally. There is no evidence of thrombus within the femoral, popliteal or tibial segments. The greater saphenous veins are also within normal limits. Doppler indicates normal spontaneous flow within these segments.
--- NOTE | 2017-04-24 14:01 | Discharge Summary 2 SIG ---
DATE OF ADMISSION: 04/18/2017 DATE OF DISCHARGE: 04/21/2017 Reason For Admission: 66-year-old female, with history of lung CA diagnosed few months ago, already on chemotherapy, last chemotherapy one week ago, history of the DVT upper extremity, history of pericardial effusion, status post pericardial window, and history of pleural effusion and thoracentesis presented to Emergency Department with shortness of breath and hypotension. She had low-grade fever -100, heart rate -140, and blood pressure-77/38. She required supplemental oxygen at 4 liters via nasal cannula. Saturation was 92%. Lactic acid -1.3. EKG revealed sinus tachycardia. No acute ischemic changes. IV bolus given without improvement in blood pressure. Central line was placed and the patient was started on pressor for hemodynamic support. The patient showed evidence of pancytopenia with WBC - 0.2, hemoglobin -10.8, hematocrit- 33.6, and platelets -60153. Chest x-ray revealed left pleural effusion and atelectasis. CTA revealed no evidence of pulmonary emboli. Ill-defined mass in the anterior mediastinal region. Encasement of the left upper lobe bronchus with postobstructive atelectasis. Left pleural effusion appeared to be non-hemodynamically in nature and could be inflammatory or secondary to malignancy. Emphysema within the lungs. Right renal pelvis calculus. Patient was transferred to ICU for further management. ADMITTING DIAGNOSES: 1. Sepsis. 2. Septic shock secondary to sepsis and hypovolemia. 3. Neutropenic fever. 4. Pancytopenia. 5. Sinus tachycardia. 6. Advanced lung carcinoma with recent chemotherapy. 7. Pleural effusion. 8. History of pericardial effusion. Hospital Course: The patient was admitted to ICU, ID and Cardiology consults were requested. The patient was on pressors for hemodynamic support and eventually was able to be weaned from pressors. The patient was on IV antibiotics. Heart rate was closely monitored. The patient was started on Neupogen. Neutropenic precautions were maintained. Unable to perform thoracentesis due to low platelets. Family requested from the beginning transferred to [facility]. The patient was placed on the waiting list. Next day, WBC -0.5, platelets down to 8, hemoglobin and hematocrit remained at the baseline. Hemoglobin -10.6, hematocrit -31.7. Low magnesium -1.3. Low potassium -2.6. Potassium and magnesium supplements provided. ID consult seen and evaluated the patient. Blood culture 08/09 showed gram variable rods. The patient was on antibiotic as per ID management. Palaeontologist followed the patient closely. Per certified home health aide, septic shock was secondary to hypovolemia. Palaeontologist initially recommended to continue volume resuscitation and antibiotics, and attempt to taper pressors (pressors were subsequently discontinued as mentioned above). The patient's condition was critical with guarded prognosis. Potassium and magnesium replacement provided. Blood pressure was more stable and was able to be weaned from pressors. The patient was afebrile. The patient status post transfusion with two units of plateletpheresis. Next day, platelets up to 55 and WBC up to 2. The patient was on Neupogen. Hemoglobin and hematocrit remained on the baseline. The patient was on antibiotics. Antibiotic regimen optimized as per ID specialist recommendations. Venous duplex of bilateral lower extremities revealed no evidence of DVT. On 04/21/2017, the bed was secured at [facility]. The patient was stable for transfer. The patient was off pressor and afebrile. Platelets improved after two units of plateletpheresis. Heart rate was stable. The patient was stable for transfer via [facility] ambulance to [facility] for further management. FINAL DIAGNOSES: 1. Sepsis with gram variable bacteremia. 2. Septic shock secondary to sepsis and hypovolemia. 3. Neutropenic fever. 4. Pancytopenia. 5. Sinus tachycardia. 6. Advanced metastatic lung cancer. 7. Pleural effusion. 8. History of pericardial effusion. Discharge Medications: List of medication was sent with the patient to admitting facility. Discharge Instructions: The patient was transferred via [facility] ambulance to [facility]. Follow up with medical doctor at the facility. Neftali Sam M.D. I have been assigned to dictate discharge summary on this account and I was not involved in the patient's management. Fatou HillSt[facility] Health CenterAlecia NPatiencePPatience DR: GASPER JOB#: [id number] CC: [email or web address]
== END 2017-04-21 14:26 | disposition short-term general hospital (02) | DRG 871 ==
LOC: EDBD 16:24 → EMR 17:00 → ICU 18:36 → EDBEDREQ 20:19 → 2W 04-20 11:20
DX: A41.9 Sepsis, unspecified organism (principal); R65.21 Severe sepsis with septic shock; J90 Pleural effusion, not elsewhere classified; D61.818 Other pancytopenia; I31.3 Pericardial effusion (noninflammatory); C34.90 Malignant neoplasm of unspecified part of unspecified bronchus or lung; E83.42 Hypomagnesemia; N20.0 Calculus of kidney; E87.6 Hypokalemia; R00.0 Tachycardia, unspecified; E86.1 Hypovolemia; Z86.718 Personal history of other venous thrombosis and embolism; Z87.891 Personal history of nicotine dependence; Z88.0 Allergy status to penicillin
CPT/HCPCS: 36415; 71010; 71275; 80048; 83605; 83735; 85007; 85025; 86850; 86900; 86901; 87040; 87081; 93005; 93970; 94640; 94760; J8499; S0077